=== PATIENT | male | born 1985 ===

== ENCOUNTER 2023-10-22 23:11 | Inpatient (IN) ==
[2023-10-22 23:32] LABS: ABS Basophils 0.1 10^3/uL (0.0-0.1); ABS Eosinophils 0.7 10^3/uL (0.0-0.5); ABS Lymphocytes 1.6 10^3/uL (1.0-4.8); ABS Monocytes 0.9 10^3/uL (0.0-1.1); ABS Neutrophils 4.6 10^3/uL (1.5-7.6); ABS Nucleated RBC 0.01 10^3/ul; Eosinophil % 8.3 %; Hematocrit 45.2 % (38-53); Hemoglobin 15.3 g/dL (13.2-16.3); Lymphocyte % 20.9 %; Mean Corpuscular Hemoglobin 27.9 pg (27-33); Mean Corpuscular Hgb Conc 33.8 g/dL (31-36); Mean Corpuscular Volume 82.4 fL (80-97); Mean Platelet Volume 8.9 fL (7.5-11.2); Nucleated Red Blood Cells % 0.1 %/100WBC (0.0-0.8); Platelet Count 219 10^3/uL (150-450); Red Blood Count 5.49 10^6/uL (4.06-5.63); Red Cell Distribution Width 13.4 % (12-17); White Blood Count 7.9 10^3/uL (3.6-10.2)
[2023-10-22 23:38] LABS: INR 0.96 (0.83-1.13)
[2023-10-22] MEDS ORDERED: Heparin - STEMI 5,000 UNITS/ML 1 ml VIAL IV ONE (23:40)
[2023-10-22] MEDS: Heparin - STEMI 5,000 UNITS/ML 1 ml VIAL IV ONE (23:43)
[2023-10-22] MEDS ORDERED: Midazolam 5 mg/5 ml VIAL 1 mg/ml 5 ml VIAL (5 mg) ONE (23:56)
[2023-10-22] MEDS ORDERED: fentaNYL 100 mcg/2 ml 50 MCG/ML VIAL ONE (23:56)
[2023-10-22] MEDS ORDERED: Lidocaine 1% MPF 5 ML VIAL ONE (23:57)
[2023-10-22] MEDS ORDERED: Iohexol 350 (CONTRAST) 200 ML MDV IV ONE (23:57)
[2023-10-22] MEDS ORDERED: Heparin 2 UNITS/ML 1000 mls 3,000 ML IV ONE (23:57)
[2023-10-22] MEDS ORDERED: Heparin 1,000 UNIT/ML 10 ml (10,000 UNITS) CATHLAB/DIALYSIS ONE (23:57)
[2023-10-22] MEDS ORDERED: VERAPAMIL 2.5 MG/ML 2 ML VIAL ** 5 mg/2 ml ONE (23:57)
[2023-10-22] MEDS ORDERED: nitroGLYCERIN DRIP 25,000 MCG/250 ML BTL ONE (23:57)
[2023-10-22] MEDS ORDERED: niCARdipine 0.1MG/ML IVPREMIX 20 MG/200 ML BAG IV ONE (23:58)
[2023-10-23] MEDS: Nitroglycerin 0.6 mg TAB SL ONE (00:01)
[2023-10-23] MEDS ORDERED: Naloxone 0.4 mg VIAL 0.4 mg/ml 1 ml VIAL IV PUSH PRN (00:10)
[2023-10-23] MEDS ORDERED: Flumazenil 0.5 mg/5 ml 0.1 MG/ML 5 ml VIAL IV PRN (00:10)
[2023-10-23] MEDS ORDERED: Atropine 0.1 MG/ML 10 ml SYR (1 mg) ONE (00:30)
[2023-10-23] MEDS ORDERED: fentaNYL 100 mcg/2 ml 50 MCG/ML VIAL ONE (00:35)
[2023-10-23 00:43] LABS: Albumin 4.9 g/dL (3.2-5.2); Albumin/Globulin Ratio 1.9 (1-3); Calcium 9.7 mg/dL (8.6-10.3); Creatinine, Serum 1.03 mg/dL (0.67-1.17); Globulin 2.6 g/dL (2-4); Potassium 4.1 mmol/L (3.5-5.0); Total Bilirubin 0.4 mg/dL (0.2-1.0); Total Protein 7.5 g/dL (6.4-8.9); eGFR CKD-EPI 94.2 (>60)
[2023-10-23] MEDS ORDERED: Iohexol 350 (CONTRAST) 100 ML PAK IV ONE (00:45)
[2023-10-23 00:57] LABS: High Sensitivity Troponin 1 Hr 36 pg/mL (<20)
[2023-10-23] MEDS: fentaNYL 100 mcg/2 ml 50 MCG/ML VIAL IV SLOW PU ONE (01:25)
[2023-10-23] MEDS: Midazolam 10 mg/10 ml VIAL 1 mg/ml 10 ml VIAL (10 mg) IV SLOW PU ONE (01:26)
[2023-10-23 04:44] LABS: ABS Eosinophils 0.6 10^3/uL (0.0-0.5); ABS Lymphocytes 1.7 10^3/uL (1.0-4.8); ABS Monocytes 0.7 10^3/uL (0.0-1.1); ABS Neutrophils 6.2 10^3/uL (1.5-7.6); Hematocrit 39.1 % (38-53); Hemoglobin 13.4 g/dL (13.2-16.3); Lymphocyte % 18.6 %; Mean Corpuscular Hemoglobin 28.4 pg (27-33); Mean Corpuscular Hgb Conc 34.4 g/dL (31-36); Mean Corpuscular Volume 82.5 fL (80-97); Mean Platelet Volume 9.4 fL (7.5-11.2); Platelet Count 181 10^3/uL (150-450); Red Blood Count 4.74 10^6/uL (4.06-5.63); Red Cell Distribution Width 13.5 % (12-17); White Blood Count 9.2 10^3/uL (3.6-10.2)
[2023-10-23 05:03] LABS: Albumin 3.9 g/dL (3.2-5.2); Albumin/Globulin Ratio 1.6 (1-3); Calcium 8.7 mg/dL (8.6-10.3); Creatinine, Serum 0.93 mg/dL (0.67-1.17); Globulin 2.4 g/dL (2-4); HDL Cholesterol 33.5 mg/dL; Potassium 3.9 mmol/L (3.5-5.0); Total Bilirubin 0.3 mg/dL (0.2-1.0); Total Protein 6.3 g/dL (6.4-8.9); eGFR CKD-EPI 106.5 (>60)
[2023-10-23] MEDS: Enoxaparin 40 MG/0.4 ML SYR SUBCUT SCH (08:06)
[2023-10-23] MEDS: Sulfur Hexaflouride MICROSPHR 25 MG VIAL IV ONE (10:16)
[2023-10-23 14:24] VITALS: BP 100/77
== END 2023-10-23 15:00 | disposition home or self-care (01) | DRG 192 ==
LOC: ED 23:11 → CHICATH 23:38 → ICU 10-23 01:25
PROVIDERS: ADMIT Internal Medicine Critical Care Medicine; ATTEND Internal Medicine Critical Care Medicine